=== PATIENT | male | born 1965 | race Caucasian/White ===

== ENCOUNTER 2024-10-29 07:30 | Outpatient (RCR) | payer OTHER, SELFPAY | END 2025-02-26 23:59 | disposition home or self-care (01) | PROVIDERS: PCP Physician Assistant Medical; Visit Provider Orthopaedic Surgery | DX: M54.12 Radiculopathy, cervical region (principal); M75.80 Other shoulder lesions, unspecified shoulder; S46.101D Unspecified injury of muscle, fascia and tendon of long head of biceps, right arm, subsequent encounter; Z51.89 Encounter for other specified aftercare | CPT/HCPCS: 97110; 97140; 97161 ==

== ENCOUNTER 2025-02-24 08:04 | Outpatient (CLI) | payer OTHER, SELFPAY | END 2025-02-24 08:05 | disposition home or self-care (01) | LOC: LKVREF 08:06 | PROVIDERS: PCP Nurse Practitioner Family; Visit Provider Nurse Practitioner Family | DX: Z00.00 Encounter for general adult medical examination without abnormal findings (principal); S30.861A Insect bite (nonvenomous) of abdominal wall, initial encounter; Z13.6 Encounter for screening for cardiovascular disorders; Z12.5 Encounter for screening for malignant neoplasm of prostate | CPT/HCPCS: 80053; 80061; 86618; G0103 ==